=== PATIENT | female | born 1990 | race Caucasian/White ===

== ENCOUNTER 2016-06-05 16:37 | Inpatient (IN) | payer OTHER ==
[~2016-06-05] VITALS: Ht 167.6 cm; Wt 53.5 kg
--- NOTE | ~2016-06-05 | D ---
[facility] [place] [address] DISCHARGE SUMMARY Name: REMEDIOSMICHAEL CHANG Room #: 401-I [facility] [place] M.R.#: [id number] Admission: 06/05/16 Attend Phys: Francisco Harrington MD Discharge: 06/06/16 Date of : 86 Report #: [id number] THIS REPORT FOR: //name// CC: FAM unknown Francisco Harrington Janes Parikh DATE OF SERVICE: 06/06/2016 HISTORY OF PRESENT ILLNESS: The patient is a 26-year-old female who presented to the Emergency Room with bilateral lower extremity pain and weakness. Please refer to admission H and P for details. Reportedly, the patient has history of "chronic Lyme disease." She went for acupuncture, but she developed more pain, so she presented to the Emergency Room. HOSPITALIZATION COURSE: The patient was hospitalized at [facility]. Neurologist saw the patient in the Emergency Room. The patient had T-spine and C-spine MRI, that was unremarkable. Her blood work was also unremarkable. Carotid ultrasounds were done, which were normal. The patient's symptoms were out of proportion of the findings, which were essentially normal. Conversion disorder was also considered. Old medical records were reviewed from a year ago from [facility], and apparently, the patient had very similar hospitalization there, with no actual findings. Urine drug screen was positive for marijuana. The patient was advised to avoid illicit drug use. She stated that she takes it for chronic pain, related to her "chronic Lyme disease." The patient reportedly is followed by lung disease specialist. She is also on fludrocortisone, she states, for "hormonal disturbance." The patient was seen by physical therapist. She received NSAIDs, as well as Flexeril. This morning, her symptoms are much better, and she is able to walk, without significant pain. Her medical condition is stable, and her examination as well as laboratory values and imaging studies are unremarkable as detailed above. DISCHARGE DIAGNOSES: 1. Acute exacerbation of chronic lower extremity pain and weakness. As noted, negative evaluation. Details as above in hospitalization course. 2. The patient is taking fludrocortisone for unclear reason. 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 Hypothyroidism, currently on porcine thyroid. 4. Suspected conversion disease. 5. Marijuana abuse. DISPOSITION: The patient is discharged home. HOME MEDICATIONS: Please refer to the medication reconciliation list. The patient is on multiple nutritional supplements. In addition, she will be continued on Flexeril, as she had improvement on this medication. FOLLOWUP PLAN: 1. Follow up with the neurologist in about 1 month. 2. Follow up with the primary care physician in 1-2 weeks. I spent more than 30 minutes to coordinate the patient's care and discharge from the hospital. <ELECTRONICALLY SIGNED> By: aMrcela Cantu MD 06/12/16 1246 1516 1530 Marcela Cantu MD /nt
--- NOTE | ~2016-06-05 | HC ---
[facility] [place] [address] CONSULTATION Name: MICHAEL WHEATLEY Room #: 401-I ADM IN M.R.#: [id number] Admission: 06/05/16 Attend Phys: Francisco Harrington MD Discharge: Date of : 86 Report #: [id number] THIS REPORT FOR: //name// CC: FAM unknown Francisco Qureshi [facility] HISTORY OF PRESENT ILLNESS: This is a 26-year-old female patient who indicates she started having weakness in the lower extremities from Sunday. It has progressively become worse and she is not able to ambulate. It also has started to affect her upper extremities. She indicates she had the same kind of symptom about 1 year ago. At this time, they are much more severe. She was worked up in [facility] at that time. She was evaluated for MS. Apparently, the workup was negative. She also had an EMG that time. I do not have any of the records from [facility]. She does not know what bring this symptoms on and she does not know any other contributing factor to it. Her bladder muscles are not involved, but she feels her legs are numb. The deficit fluctuates as I understand, but is progressively becoming worse. REVIEW OF SYSTEMS: Indicate that she said she has hypoglycemia sometime. She was diagnosed with Lyme disease in [place] and now she was diagnosed with Lyme disease here in [place]. I do not have any of those records. She said she got antibodies for a long period of time. She said the only stress she has is because of sickness and she is otherwise not stressed. She is complaining of lower back pain. She indicates they radiate down to her leg as well as towards the groin area. This was her relevant 14-point review of system. PAST MEDICAL HISTORY: Positive for similar symptoms about a year ago. FAMILY HISTORY: Negative for early age strokes. SOCIAL HISTORY: She denies the use of alcohol and tobacco. PHYSICAL EXAMINATION: Indicate she is alert, she is responsive, she can follow simple commands. Her memory and fund of knowledge is unremarkable. Cranial nerve examination 2-12 does not show any definite abnormality. Neurological examination of the lower extremities indicate that she has weakness in both lower extremities. She subjectively feels weak in the upper extremity, but she does not appear to be weak up there. Her position sense is intact and her vibration sense is intact. She does indicate that she can feel the pinprick, but although it seems altered. Her reflexes are normal and well elicited in both lower and upper extremity. I cannot tell about plantars. There is no meningeal sign. There is no carotid bruit in this patient. Vital signs indicate a blood pressure of , respirations 20, pulse is 63, and temperature is 98.4. [facility] [address] [place] [address] CONSULTATION Name: MICHAEL WHEATLEY Room #: 401-I ADM IN .R.#: [id number] Admission: 06/05/16 Attend Phys: Francisco Harrington MD Discharge: Date of : 86 Report #: [id number] LABORATORY DATA: Indicate a normal white count at 5.3, urine toxicology is positive for marijuana, urine screen is positive for ketones 2+. She had a lumbar spine MRI in the Emergency Room and that was unremarkable. IMPRESSION AND PLAN: There is good possibility that this patient's symptoms are psychological in nature. However, organic causes need to be excluded in this patient with more certainty before that diagnosis can be considered. Spinal cord lesion is the one, which we would like to exclude most in this patient. Other possibilities include the possibility of multiple sclerosis, Guillain-Tijeras syndrome and some other neuromuscular conditions. The whole history need to be readdressed especially in the light of the fact that she has been diagnosed with a Lyme disease, but I am not sure how certain the diagnosis is and the workup for similar symptoms was negative in [facility]. Something like dural AV malformations can cause similar problems, but again those things are rare. Treatment I think emergent thing will be to make sure there is no cord lesion in this patient. If cord lesion is present, it would be higher up either in the thoracic spine on in the cervical spine. If that is excluded, then the other workup need to be done. I did discuss with her the limitation of our hospital. We do not have an EMG machine here and we do not have a spine physician who comes here. I discussed that with the patient. I discussed her options with her that she has an option of going to have another hospital where all these facilities are available. After discussing all of it with her, she will decide once her mother comes here. In the meantime, I will go ahead and do an MRI of the thoracic and cervical spine to make sure there is no lesion there. I talked to radiologist on-call and he said that they should be able to do the MRI even if there is some contrast inside. I think that it is worth proceeding with that to make sure there is no cord lesion. If the cord lesion is excluded, then we can start working her up some other causes, which are summarized above. Dr. Vaughan will be the neurologist covering this patient and I just saw her as an on-call physician, she will be back tomorrow and take over this patient. By: [id number] MD minoo Arvizu
--- NOTE | ~2016-06-05 | EKG ---
[address] [place] [address] ELECTROCARDIOGRAM REPORT Name: MICHAEL WHEATLEY Room #: 401-I ADM IN M.R.#: [id number] Admission: 06/05/16 Attend Phys: Francisco Harrington MD Discharge: Date of : 86 Report #: [id number] THIS REPORT FOR: //name// [facility] ED Test Date: 2016-06-05 Test Time: 17:57:41 Pat Name: MICHAEL WHEATLEY Department: Room: [facility] Gender: F Machine Welder: kofi : 1990 Requested By: Parish Joshi Order Number: [id number] MD: Yong Shields Measurements Intervals Palmer Rate: 61 P: 79 MA: 169 QRS: 89 QRSD: 101 T: 64 QT: 423 QTc: 426 Interpretive Statements Sinus rhythm No significant abnormality No previous ECG available for comparison Electronically Signed On 06-06-2016 8:54:25 CDT by Yong Shields [email or web address] <ELECTRONICALLY SIGNED> By: Yong Shields MD, [facility] 06/06/16 0854 1757 1757 Yong Shields MD, FACC /EPI
[2016-06-05 16:38] VITALS: BP 115/82
[2016-06-05 18:05] LABS: ABSOLUTE NEUTROPHILS 2.9 thou/uL (1.4-8.2); BASOPHILS 0.3 % (0.0-2.0); EOSINOPHILS 0.4 % (0.0-3.0); HEMATOCRIT 41.5 % (37.0-47.0); HEMOGLOBIN 14.6 gm/dL (12.0-15.0); LYMPHOCYTES 37.3 % (24.0-44.0); MCH 30.4 pg (26.0-34.0); MCV 86.7 fL (80.0-100.0); MONOCYTES 6.9 % (1.0-8.0); PLATELET COUNT 177 thou/uL (150-400); POLYS 55.1 % (36.0-66.0); RBC 4.79 mil/uL (4.20-5.00); RDW 14.6 % (10.5-14.5); WBC 5.3 thou/uL (4.0-11.0)
[2016-06-05 18:06] LABS: MANUAL DIFF NO
[2016-06-05] MEDS ORDERED: NATURE-THROID32.5 MG PO (18:09)
[2016-06-05] MEDS ORDERED: FLORINEF ACETA0.1 MG PO (18:09)
[2016-06-05] MEDS ORDERED: AZITHROMYCIN 2250 MG PO (18:10)
[2016-06-05] MEDS ORDERED: [UNRECOGNIZED DRUG - OTHER] PO (18:13)
[2016-06-05] MEDS ORDERED: [UNRECOGNIZED DRUG - OTHER] PO (18:15)
[2016-06-05] MEDS ORDERED: PROBIOTIC PO (18:15)
[2016-06-05] MEDS ORDERED: GLUTATHIONE PO (18:16)
[2016-06-05] MEDS ORDERED: [UNRECOGNIZED DRUG - OTHER] PO (18:16)
[2016-06-05] MEDS ORDERED: [UNRECOGNIZED DRUG - OTHER] PO (18:17)
[2016-06-05] MEDS ORDERED: [UNRECOGNIZED DRUG - OTHER] PO (18:17)
[2016-06-05 18:18] LABS: CALCIUM 9.2 mg/dL (8.5-10.1); CREATININE 0.6 mg/dL (0.6-1.0); POTASSIUM 3.6 mmol/L (3.5-5.1)
[2016-06-05] MEDS ORDERED: ADVOCARE PO (18:18)
[2016-06-05] MEDS ORDERED: [UNRECOGNIZED DRUG - OTHER] PO (18:18)
[2016-06-05] MEDS ORDERED: [UNRECOGNIZED DRUG - OTHER] PO (18:19)
[2016-06-05] MEDS ORDERED: VITAMIN D350000 UNIT PO (18:20)
[2016-06-05] MEDS ORDERED: CHARCOCAPS260 MG PO (18:20)
[2016-06-05] MEDS ORDERED: VITAMIN B COMP1 EACH PO (18:22)
[2016-06-05] MEDS ORDERED: [UNRECOGNIZED DRUG - OTHER] PO (18:22)
[2016-06-05 18:23] LABS: ALBUMIN 4.4 g/dL (3.4-5.0); TOTAL BILIRUBIN 0.3 mg/dL (<0.1-1.0)
[2016-06-05] MEDS ORDERED: [UNRECOGNIZED DRUG - OTHER] PO (18:23)
[2016-06-05] MEDS ORDERED: MONOLAURIN PO (18:24)
[2016-06-05] MEDS ORDERED: [UNRECOGNIZED DRUG - OTHER] PO (18:24)
[2016-06-05 19:12] LABS: URINE BILIRUBIN NEGATIVE (Negative); URINE BLOOD NEGATIVE (Negative); URINE COLOR YELLOW; URINE GLUCOSE-RANDOM* NEGATIVE (Negative); URINE KETONES 2+ (Negative); URINE LEUKOCYTES-REFLEX NEGATIVE (Negative); URINE PROTEIN (DIPSTICK) NEGATIVE (Negative); URINE SPECIFIC GRAVITY 1.015 (1.003-1.035); URINE UROBILINOGEN 0.2 E.U./dl (0.2-1.0)
[2016-06-05 19:28] LABS: AMP/METHAMP Negative (Negative); BARBITURATES Negative (Negative); BENZODIAZEPINES Negative (Negative); COCAINE Negative (Negative); METHADONE Negative (Negative); OPIATES Negative (Negative); PCP Negative (Negative); THC POSITIVE (Negative)
[2016-06-05 19:50] VITALS: BP 91/61
[2016-06-05 21:14] VITALS: BP 107/65
[2016-06-06 01:06] VITALS: BP 80/38
[2016-06-06 05:51] VITALS: BP 93/45
[2016-06-06 07:34] VITALS: BP 88/52
[2016-06-06 12:09] LABS: CHOLESTEROL 98 mg/dL (<200); HDL CHOLESTEROL 66 mg/dL (>40); LDL CHOLESTEROL 29.00001 mg/dL (<100); TC:HDL 1.5 Ratio (Not establshd); VLDL 3 mg/dL (<40)
[2016-06-06 12:23] LABS: TRIGLYCERIDE < 15 mg/dL (<150)
[2016-06-06] MEDS ORDERED: CYCLOBENZAPRINE5 MG PO (15:18)
[2016-06-06 15:32] VITALS: BP 88/52
== END 2016-06-06 16:00 | disposition home or self-care (01) | DRG 880 ==
LOC: ER 16:37 → EROBS 19:29 → 4N 19:29
PROVIDERS: Physician Assistant; Psychiatry & Neurology Neurology
DX: F44.9 Dissociative and conversion disorder, unspecified (principal); M54.5 Low back pain; R53.1 Weakness; M79.606 Pain in leg, unspecified; E03.9 Hypothyroidism, unspecified; F12.10 Cannabis abuse, uncomplicated
CPT/HCPCS: 10091